=== PATIENT | female | born 1955 | race Caucasian/White ===

== ENCOUNTER → 2017-03-24 | Outpatient (CLI) | payer BC | LOC: RAD 11:53 | DX: M47.892 Other spondylosis, cervical region (principal); R20.2 Paresthesia of skin ==

== ENCOUNTER → 2017-12-13 | Outpatient (CLI) | payer BC ==
[2017-12-13 12:35] LABS: CREATININE 0.7 mg/dL (0.6-1.0)
== END ==
LOC: CAT 10:36
PROVIDERS: Nurse Practitioner
DX: C20 Malignant neoplasm of rectum (principal); K62.89 Other specified diseases of anus and rectum; K76.0 Fatty (change of) liver, not elsewhere classified; Z86.010 Personal history of colon polyps

== ENCOUNTER 2020-04-13 10:50 | Emergency (ER) | payer OTHER ==
[~2020-04-13] VITALS: Ht 165.1 cm; Wt 59.0 kg
[2020-04-13] MEDS ORDERED: NORCO 5-325 TA1 EAC1 PO (12:41)
[2020-04-13 13:43] VITALS: BP 128/72
== END 2020-04-13 13:44 | disposition home or self-care (01) ==
LOC: ER 10:50
DX: S92.355A Nondisplaced fracture of fifth metatarsal bone, left foot, initial encounter for closed fracture (principal); I10 Essential (primary) hypertension; X50.1XXA Overexertion from prolonged static or awkward postures, initial encounter; Y93.89 Activity, other specified; Y92.89 Other specified places as the place of occurrence of the external cause; Y99.8 Other external cause status